=== PATIENT | male | born 1950 | race African-American/Black ===

== ENCOUNTER 2021-05-14 04:04 | Emergency (ER) | payer OTHER ==
[~2021-05-14] VITALS: Ht 188 cm; Wt 99.8 kg
[~2021-05-14 04:04] MED LIST: ASPIR 8181 MG PO; IBUPROFEN 600600 M1 PO; LIPITOR10 MG PO; NORCO 5-325 TA1 EACH PO; TENORMIN50 MG PO
[2021-05-14 04:10] VITALS: BP 161/81
[2021-05-14] MEDS ORDERED: PROSCAR 5MG TABL5 M1 PO (04:17)
[2021-05-14] MEDS ORDERED: HYDROCHLOROTH12.5 M2 PO (04:17)
[2021-05-14] MEDS ORDERED: CIPROFLOXIN HC2.5 M1 OPHTHALMIC (05:10)
== END 2021-05-14 05:28 | disposition home or self-care (01) ==
LOC: ER 04:04
DX: T15.11XA Foreign body in conjunctival sac, right eye, initial encounter (principal); Z79.899 Other long term (current) drug therapy; Z79.82 Long term (current) use of aspirin; X58.XXXA Exposure to other specified factors, initial encounter; Y93.89 Activity, other specified; Y92.89 Other specified places as the place of occurrence of the external cause; Y99.9 Unspecified external cause status